=== PATIENT | female | born 1995 | race Two or more races ===

== ENCOUNTER 2017-08-02 22:28 | Emergency (ER) | payer SELFPAY ==
[2017-08-02 22:57] VITALS: BP 125/83
== END 2017-08-03 01:03 | disposition left against medical advice (07) ==
LOC: ER 22:28
DX: Z53.21 Procedure and treatment not carried out due to patient leaving prior to being seen by health care provider (principal)

== ENCOUNTER 2018-06-19 12:07 | Outpatient (CLI) | payer MEDICAID ==
[2018-06-19 12:56] LABS: APPEARANCE,URINE CLEAR; BILIRUBIN,URINE NEGATIVE (NEGATIVE); COLOR,URINE YELLOW; GLUCOSE, URINE NEGATIVE (NEGATIVE); KETONES,URINE NEGATIVE (NEGATIVE); LEUKOCYTE ESTERASE,URINE SMALL (NEGATIVE); NITRITE,URINE NEGATIVE (NEGATIVE); PROTEIN,URINE 30 mg/dL (NEGATIVE); URINE SPECIFIC GRAVITY 1.009; UROBILINOGEN,URINE NEGATIVE mg/dL (<2.0)
[2018-06-19 13:30] LABS: URINE AMPHETAMINES SCREEN NEGATIVE; URINE BARBITURATES SCREEN NEGATIVE; URINE BENZODIAZEPINES SCREEN NEGATIVE; URINE MARIJUANA (THC) SCREEN NEGATIVE; URINE METHADONE SCREEN NEGATIVE; URINE PHENCYCLIDINE SCREEN NEGATIVE
--- NOTE | 2018-06-19 13:51 | Non Stress Test Report ---
Non Stress Test Datetime Report Generated by CPN: 06/19/2018 13:51 DEMOGRAPHIC EGA NST: 37.2 INDICATION Indication for Study: Ordered by Provider MONITORING Monitor Explained: Monitor Explained; Test Explained; Patient Verbalized Understanding Time on Monitor: 06/19/2018 12:30 Time off Monitor: 06/19/2018 13:15 NST Duration: 45 NST INTERVENTIONS NST Interventions: PO Hydration Physician Notified NST: K Sapp CNM BABY A: [id number] Movement : Present Contraction Frequency : irregular FHR Baseline : 130 Accelerations : 15X15 Decelerations : None Variability : Moderate 6-25bpm NST Review: Meets Criteria for Reactive NST NST Review and Verified By : Antwon Tavarez RN NST Results: Reactive NST REPORT Report Trigger: Send Report
[2018-06-19 14:03] LABS: URINE COCAINE SCREEN NEGATIVE
[2018-06-19 14:26] LABS: UR PRO/CREAT RATIO RESULT 0.5 mg/mg (0.0-0.2); URINE CREATININE 80.2 mg/dL (16-327); URINE PROTEIN 38.2 mg/dL (<12)
== END 2018-06-19 13:30 | disposition home or self-care (01) ==
LOC: LC 12:07
PROVIDERS: ATTEND Obstetrics & Gynecology
PROC: 4A1HXCZ Monitoring of Products of Conception, Cardiac Rate, External Approach (ICD-10-PCS; principal; 2018-06-19)
DX: O47.1 False labor at or after 37 completed weeks of gestation (principal); Z3A.37 37 weeks gestation of pregnancy
CPT/HCPCS: 59025; 80307; 81005; 82570; 84156

== ENCOUNTER 2018-06-23 03:20 | Inpatient (IN) | payer MEDICAID ==
[2018-06-23] MEDS ORDERED: RINGERS SOLUTION,LACTATED 1,000 ML IV PRN ×2 (03:27→07:22)
[2018-06-23] MEDS ORDERED: OXYTOCIN/NORMAL SALINE 20 UNIT/1,000 ML RTUINJ ONE (03:31)
[2018-06-23] MEDS ORDERED: MISOPROSTOL 0.2 MG TABLET ONE (03:31)
[2018-06-23] MEDS ORDERED: LIDOCAINE 1% INJ-PF (10 MG/ML) 30 ML SDV ONE (03:31)
[2018-06-23 03:51] LABS: ABSOLUTE BASOPHILS # (AUTO) 0.1 10^3/uL (0.0-0.2); ABSOLUTE EOSINOPHILS # (AUTO) 0.2 10^3/uL (0.0-0.6); ABSOLUTE LYMPHOCYTES (AUTO) 3.5 10^3/uL (0.5-4.7); ABSOLUTE MONOCYTES (AUTO) 0.7 10^3/uL (0.1-1.4); ABSOLUTE NEUT (AUTO) 9.1 10^3/uL (1.7-8.2); BASOPHILS % (AUTO) 0.7 % (0-2); EOSINOPHILS % (AUTO) 1.8 % (0-6); HEMATOCRIT 35.7 % (36.0-47.0); HEMOGLOBIN 12.1 g/dL (12.0-15.5); LYMPHOCYTES % (AUTO) 25.5 % (13-45); MEAN CORPUSCULAR HEMOGLOBIN 27.6 pg (27.0-33.4); MEAN CORPUSCULAR HGB CONC 33.8 g/dL (32.0-36.0); MEAN CORPUSCULAR VOLUME 82 fl (80-97); MONOCYTES % (AUTO) 5.1 % (3-13); PLATELET COUNT 370 10^3/uL (150-450); RED BLOOD COUNT 4.36 10^6/uL (3.72-5.28); RED CELL DISTRIBUTION WIDTH 14.7 % (11.5-14.0); SEGMENTED NEUTROPHILS % (AUTO) 66.9 % (42-78); TOTAL CELLS COUNTED % (AUTO) 100 %; WHITE BLOOD COUNT 13.7 10^3/uL (4.0-10.5)
[2018-06-23 03:59] LABS: APPEARANCE,URINE CLOUDY; BILIRUBIN,URINE NEGATIVE (NEGATIVE); COLOR,URINE YELLOW; GLUCOSE, URINE NEGATIVE (NEGATIVE); KETONES,URINE NEGATIVE (NEGATIVE); LEUKOCYTE ESTERASE,URINE NEGATIVE (NEGATIVE); NITRITE,URINE NEGATIVE (NEGATIVE); PROTEIN,URINE 30 mg/dL (NEGATIVE); URINE SPECIFIC GRAVITY 1.009; UROBILINOGEN,URINE NEGATIVE mg/dL (<2.0)
--- NOTE | 2018-06-23 04:13 | Admission Physical ---
Datetime Report Generated by CPN: 06/23/2018 04:12 CURRENT ADMISSION Chief Complaint: Uterine Contractions; Suspected Ruptured Membranes Indication for Induction: Not Applicable Admit Impression : Term, Intrauterine ; Ruptured Membranes Admit Plan: Admit to Unit; Initiate Labor Protocol ALLERGIES Medication Allergies: No Medication Allergies: No Known Allergies (06/23/2018) Latex: No Latex Allergies Food Allergies: n/a Environmental Allergies: n/a OBSTETRICAL HISTORY EDC: 07/08/2018 00:00 : 2 Para: 1 Term: 1 : 0 SAB: 0 IAB: 0 Ectopic: 0 Livin Cesareans: 0 VBACs: 0 Multiple Births: 0 Gestational Diabetes: No Rh Sensitization: No Incompetent Cervix: No SARAN: No Infertility: No ART Treatment: No Uterine Anomaly: No IUGR: No Hx Previous C/S: No Macrosomia: No Hx Loss/Stillborn: No PIH: No Hx : No Placenta Previa/Abruption: No Depression/PP Depression: No PTL/PROM: No Post Hemorrhage: No Current Procedures: Ultrasound Obstetrical History Comments: G1- G2- current SEE RECORDS Alcohol: No Marijuana : No Cocaine: No Other Illicit Drugs: No Cigarettes: Never Smoker. [id number] MEDICAL HISTORY Diabetes: No Blood Transfusion: No Pulmonary Disease (Asthma, TB): No Breast Disease: No Hypertension: No Et[employer] W[employer] Surgery: No Heart Disease: No Hosp/Surgery: Yes Autoimmune Disorder: No Anesthetic Complications: No Kidney Disease: No Abnormal Pap Smear: No Neuro/Epilepsy: No Psychiatric Disorders: No Other Medical Diseases: No Hepatitis/Liver Disease: No Significant Family History: Yes Varicosities/Phlebitis: No Trauma/Violence : No Thyroid Dysfunction: No Medical History Comments: childbirth INFECTIOUS HISTORY Gonorrhea: No Genital Herpes: No Chlamydia: No Tuberculosis: No Syphilis: No Hepatitis: No HIV/AIDS Exposure: No Rash or Viral Illness: No HPV: No PHYSICAL EXAM General: Normal HEENT: Normal Neurologic: Normal Thyroid: Normal Heart: Normal Lungs: Normal Breast: Deferred Back: Normal Abdomen: Normal Genitourinary Exam: Normal Extremities: Normal DTRs: Normal Pelvic Type: Adequate Vital Signs: Reviewed VAGINAL EXAM Dilatation: 5 Effacement: 50 Station: -2 MEMBRANES Pooling: Positive Membranes: Ruptured FETUS A EGA: 37.6 Monitoring: External US FHR- Baseline: 120 Variability: Moderate 6-25bpm Accelerations: 15X15 Decelerations: None FHR Category: Category I Admit Comment: Admit for delivery PLANS FOR LABOR AND DELIVERY Labor and Delivery: Plan Pain Management: Natural; Medications; Epidural Feeding Preference: Breast Benefit of Breast Feed Discussed: Yes Circumcision: Yes INFORMED CONSENT Signature: with User ID: [email or web address]
[2018-06-23 04:20] LABS: URINE AMPHETAMINES SCREEN NEGATIVE; URINE BARBITURATES SCREEN NEGATIVE; URINE BENZODIAZEPINES SCREEN NEGATIVE; URINE COCAINE SCREEN NEGATIVE; URINE MARIJUANA (THC) SCREEN NEGATIVE; URINE METHADONE SCREEN NEGATIVE; URINE PHENCYCLIDINE SCREEN NEGATIVE
[2018-06-23] MEDS ORDERED: PHENYLEPHRINE HCL INJ/PF 10 MG/1 ML SDV ONE (04:51)
[2018-06-23] MEDS ORDERED: FENTANYL CITRATE INJ/PF 100 MCG/2 ML AMPUL ONE (04:51)
[2018-06-23] MEDS ORDERED: FENTANYL/BUPIVACAINE/NS/PF 300 MCG/150 ML RTUINJ EPI ONE (04:52)
[2018-06-23] MEDS ORDERED: EPHEDRINE SULFATE INJ 50 MG/1 ML AMPULE ONE (04:52)
[2018-06-23] MEDS ORDERED: LIDOCAINE 2%/EPINEPHRINE INJ 20 ML VIAL ONE (04:52)
[2018-06-23] MEDS ORDERED: BUPIVACAINE HCL 0.25 % INJ/PF (2.5 MG/1 ML) 30 ML VIAL ONE (04:52)
[2018-06-23] MEDS ORDERED: LIDOCAINE 1.5%/EPINEPHRINE INJ 5 ML AMP ONE (04:53)
[2018-06-23] MEDS ORDERED: ACETAMINOPHEN 325 MG TABLET PO PRN (07:22)
[2018-06-23] MEDS ORDERED: ACETAMINOPHEN 1,000 MG/100 ML RTUPB IV PRN (07:22)
[2018-06-23] MEDS ORDERED: MEASLES,MUMPS&RUBELLA VACC/PF 0.5 ML VIAL SUBCUT PRN ×2 (07:22→08:48)
[2018-06-23] MEDS ORDERED: HYDROMORPHONE HCL INJ/PF 2 MG/ML AMPULE IV PRN (07:22)
[2018-06-23] MEDS ORDERED: DIPH/PERTUSS(ACELL)/TETANUS VAC/PF 0.5 ML SYR (>=10YO) IM PRN ×2 (07:22→08:48)
[2018-06-23] MEDS ORDERED: SIMETHICONE 80 MG TAB.CHEW PO PRN (07:22)
[2018-06-23] MEDS ORDERED: PROMETHAZINE HCL INJ 25 MG/1 ML VIAL IV PRN (07:22)
[2018-06-23] MEDS ORDERED: OXYTOCIN/NORMAL SALINE 20 UNIT/1,000 ML RTUINJ IV PRN ×2 (07:22→08:48)
[2018-06-23] MEDS ORDERED: OXYCODONE-ACETAMINOPHEN 5-325 MG TABLET PO PRN ×2 (07:22)
[2018-06-23] MEDS ORDERED: BENZOCAINE/MENTHOL AEROSOL SPRAY 56 ML TOP PRN (08:48)
[2018-06-23] MEDS ORDERED: DIBUCAINE 1% OINTMENT 56 GM TP PRN (08:48)
[2018-06-23] MEDS ORDERED: ACETAMINOPHEN WITH CODEINE #3 TABLET PO PRN ×2 (08:48)
[2018-06-23] MEDS ORDERED: ZOLPIDEM TARTRATE 5 MG TABLET PO PRN (08:48)
--- NOTE | 2018-06-23 09:59 | Delivery Summary ---
Del Sum A-C Datetime Report Generated by CPN: 06/23/2018 09:59 DELIVERY PERSONNEL DELIVERY PERSONNEL: [id number] Delivery Doctor:: Christine Pacheco MD Labor and Delivery Nurse:: Jami Hawley RNladies attendant Nurse:: Shweta Wyatt RN Varnishing Unit Operator:: Tianna Jaramillo RN Rn Security/PAINTER MAINTENANCE: Estela Quintanilla CNA II MATERNAL INFORMATION Delivery Anesthesia: Epidural Medications After Delivery: Pitocin Drip 20 Units/1000ml NSS Estimated Blood Loss (ml): 250 Maternal Complications: None LABOR SUMMARY EDC: 07/08/2018 00:00 No. Babies in Womb: 1 Attempted: No Labor Anesthesia: Epidural LABOR INFORMATION Reason for Induction: Not Applicable Onset of Labor: 06/23/2018 03:00 Complete Dilatation: 06/23/2018 07:01 Oxytocin: N/A Group B Beta Strep: negative Antibiotics # of Doses: 0 Steroids Given: None Reason Steroids Not Administered: Not Applicable MEMBRANES Membranes Rupture Method: Spontaneous Rupture of Membranes: 06/23/2018 03:00 Length of Rupture (hr): 4.17 Amniotic Fluid Color: Clear Amniotic Fluid Amount: Moderate Amniotic Fluid Odor: Normal STAGES OF LABOR Stage 1 hr: 4 Stage 1 min: 1 Stage 2 hr: 0 Stage 2 min: 9 Stage 3 hr: 0 Stage 3 min: 4 Total Time in Labor hr: 4 Total Time in Labor min: 14 VAGINAL DELIVERY Episiotomy: None Laceration #1: None Laceration Extension #1: N/A Laceration #2: None Laceration Extension #2: N/A Laceration #3: None Laceration Extension #3: N/A Laceration Repair: Not Applicable Sponge Count Correct: N/A Sharps Count Correct: N/A CSECTION DELIVERY Primary Indication: N/A Secondary Indication: N/A CSection Incidence: N/A Labor: N/A Elective: N/A CSection Incision: N/A BABY A INFORMATION Delivery Date/Time: 06/23/2018 07:10 Method of Delivery: Vaginal Born in Route : No : N/A Forceps: N/A Vacuum Extraction: N/A Shoulder Dystocia : No PRESENTATION/POSITION BABY A Presentation: Cephalic Cephalic Presentation: Vertex Vertex Position: Right Occipital Anterior Breech Presentation: N/A PLACENTA INFORMATION BABY A Placenta Delivery Time : 06/23/2018 07:14 Placenta Method of Delivery: Spontaneous Placenta Status: Delivered SCORES BABY A Heart Rate 1 min: >100 bpm Resp Effort 1 min: Good Cry Reflex Irritability 1 min: Cough or Sneeze or Pulls Away Muscle Tone 1 min: Active Motion Color 1 min: Blue/Pale Resuscitation Effort 1 min: Tactile Stimulation SCORE 1 MIN: 8 Heart Rate 5 min: >100 bpm Resp Effort 5 min: Good Cry Reflex Irritability 5 min: Cough or Sneeze or Pulls Away Muscle Tone 5 min: Active Motion Color 5 min: Body [place], Extremities Blue Resuscitation Effort 5 min: Tactile Stimulation SCORE 5 MIN: 9 INFORMATION BABY A Gestational Age at Delivery: 37.6 Gestational Status: Early Term- 37- 38.6 Weeks Infant Outcome : Liveborn Condition : Stable Infant Sex: Male IDENTIFICATION BABY A Verification Date/Time: 06/23/2018 07:30 ID Band Number: [id number] Mother's Name Verified: Yes Infant RN Verifying : Arie Jaramillo RN Ashley Barton RN WEIGHT/LENGTH BABY A Birthweight (gm): 3159 Infant Weight (lb): 6 Infant Weight (oz): 15 Length (in): 19.00 Length (cm): 48.26 CORD INFORMATION BABY A No. Cord Vessels: 3 Nuchal Cord : Around Neck x1, Loose Cord Blood Taken: Yes-For Eval (Mom's Blood Type - or O+) Suction: Mouth ASSESSMENT BABY A Infant Complications: None Physical Findings at Delivery: Within Normal Limits Infant Respirations: Appears Normal Skin to Skin: Yes Skin to Skin Time (min): 60 Linux System Admin/ALS Called : No Infant Care By: Arie Jaramillo RN Transferred To: Remains with Mother BABY B INFORMATION : N/A SIGNATURES Signature: with User ID: [email or web address]
--- NOTE | 2018-06-23 09:59 | Warning Signs in Babies ---
VOD Warning Signs Datetime Report Generated by [facility]: 06/23/2018 09:59 VOD#608 -Warning Signs in Babies: Viewed with Parent(s)/Family (06/19/2018 12:13:Tianna Jaramillo RN)
[2018-06-23] MEDS ORDERED: PRENATAL VITAMIN W DHA CAPSULE PO SCH (10:00)
[2018-06-23] MEDS ORDERED: DOCUSATE SODIUM 100 MG CAPSULE PO SCH (10:00)
[2018-06-23] MEDS ORDERED: PRENATAL VITAMIN W DHA CAPSULE PO ONE (10:02)
[2018-06-23] MEDS ORDERED: SENNOSIDES/DOCUSATE 8.6-50 MG 1 EACH TABLET ONE (10:03)
[2018-06-23] MEDS ORDERED: FERROUS SULFATE 325 MG TABLET PO ONE (10:03)
[2018-06-23] MEDS ORDERED: DOCUSATE SODIUM 100 MG CAPSULE ONE (10:03)
[2018-06-23] MEDS: SENNOSIDES/DOCUSATE 8.6-50 MG 1 EACH TABLET PO SCH (10:04)
[2018-06-23] MEDS: PRENATAL VITAMIN W DHA CAPSULE PO SCH (10:04)
[2018-06-23] MEDS: DOCUSATE SODIUM 100 MG CAPSULE PO SCH ×2 (10:05→17:21)
[2018-06-23] MEDS: FERROUS SULFATE 325 MG TABLET PO SCH ×2 (10:05→17:21)
[2018-06-23] MEDS ORDERED: IBUPROFEN 800 MG TABLET PO SCH (12:00)
[2018-06-23] MEDS: IBUPROFEN 800 MG TABLET PO SCH ×2 (13:41→21:29)
[2018-06-23] MEDS ORDERED: KETOROLAC TROMETHAMINE INJ/PF 30 MG/1 ML SDV IV SCH (14:00)
[2018-06-24] MEDS: IBUPROFEN 800 MG TABLET PO SCH ×3 (05:05→18:01)
[2018-06-24 08:21] LABS: HEMATOCRIT 35.7 % (36.0-47.0); MEAN CORPUSCULAR HGB CONC 33.5 g/dL (32.0-36.0); MEAN CORPUSCULAR VOLUME 83 fl (80-97); PLATELET COUNT 396 10^3/uL (150-450); RED BLOOD COUNT 4.28 10^6/uL (3.72-5.28)
[2018-06-24] MEDS: SENNOSIDES/DOCUSATE 8.6-50 MG 1 EACH TABLET PO SCH (10:32)
[2018-06-24] MEDS: DOCUSATE SODIUM 100 MG CAPSULE PO SCH ×2 (10:32→17:59)
[2018-06-24] MEDS: PRENATAL VITAMIN W DHA CAPSULE PO SCH (10:33)
[2018-06-24] MEDS: FERROUS SULFATE 325 MG TABLET PO SCH ×2 (10:33→17:59)
--- NOTE | 2018-06-24 11:02 | PDOC PROGRESS REPORT ---
Subjective-OB Progress Note for:: 06/24/18 Subjective: reports bleeding slowing,pain controlled with current meds, denies needs. Physical Exam (OB) Vital Signs: Temp Pulse Resp BP Pulse Ox 98.3 F 77 18 130/86 H 99 06/24/18 08:04 06/24/18 08:04 06/24/18 08:04 06/24/18 08:04 06/24/18 08:04 Intake & Output 06/23/18 06/24/18 06/25/18 06:59 06:59 06:59 Intake Total 2800 Balance 2800 Weight 97.8 kg - Abdomen Description: Soft, Round Hernia Present: No Fundal Description: Firm, Midline Fundal Height: u/u - u/2 - Abdominal Distension: No distension Tenderness: Nontender - Extremities Lower extremities: Sil's sign - neg Calf: Normal, Nontender Objective-Diagnostic Laboratory: 06/24/18 07:52 06/24/18 07:52 WBC 15.0 H RBC 4.28 Hgb 12.0 Hct 35.7 L MCV 83 MCH 28.0 MCHC 33.5 RDW 15.0 H Plt Count 396 Assessment and Plan(PN) - Assessment and Plan (1) Normal vaginal delivery Is this a current diagnosis for this admission?: Yes - Time Spent with Patient Time with patient: Less than 15 minutes Medications reviewed and adjusted accordingly: Yes - Disposition Anticipated Discharge: Home Within: within 24 hours
[2018-06-25] MEDS: IBUPROFEN 800 MG TABLET PO SCH ×2 (05:09→05:10)
[2018-06-25 09:02] VITALS: BP 120/71
[2018-06-25] MEDS: SENNOSIDES/DOCUSATE 8.6-50 MG 1 EACH TABLET PO SCH (09:15)
[2018-06-25] MEDS: DOCUSATE SODIUM 100 MG CAPSULE PO SCH (09:15)
[2018-06-25] MEDS: FERROUS SULFATE 325 MG TABLET PO SCH (09:15)
[2018-06-25] MEDS: PRENATAL VITAMIN W DHA CAPSULE PO SCH (09:15)
--- NOTE | 2018-06-25 09:44 | PDOC DISCHARGE SUMMARY ---
Final Diagnosis Discharge Date: 06/25/18 - PP Day #2, bottle feeding, baby being transferred to [place] for continued care. O+. - Final Diagnosis (1) Normal course Is this a current diagnosis for this admission?: Yes (2) Normal vaginal delivery Is this a current diagnosis for this admission?: Yes Discharge Data - Discharge Medication Prescriptions: Ibuprofen [Motrin 800 mg Tablet] 800 mg PO Q8 #60 tablet Home Medications: Vit No.130/Iron/Folic [ Tablet] 1 each PO DAILY 06/19/18 Ibuprofen [Motrin 800 mg Tablet] 800 mg PO Q8 #60 tablet 06/25/18 Reason(s) for Admission: Onset of Labor Procedures: Ultrasound Intrapartum Procedure(s): Spontaneous Vaginal Delivery - Diagnosis Test Laboratory: Temp Pulse Resp BP Pulse Ox 98.0 F 71 18 120/71 99 06/25/18 08:18 06/25/18 08:18 06/25/18 08:18 06/25/18 08:18 06/25/18 08:18 06/23/18 06/23/18 06/24/18 03:24 03:38 07:52 RBC 4.36 4.28 Hgb 12.1 12.0 Hct 35.7 L 35.7 L Urine Opiates Screen NEGATIVE - Discharge information/Instructions Discharge Activity: Activity As Tolerated, No Lifting Over 10 Pounds, Pelvic Rest Discharge Diet: As Tolerated, Regular Disposition: HOME, SELF-CARE Follow up with: [facility] in: 4, Weeks
== END 2018-06-25 10:02 | disposition home or self-care (01) | DRG 807 ==
LOC: LC 03:20 → LR 03:30 → 2S 10:50
PROVIDERS: ADMIT Obstetrics & Gynecology; ATTEND Obstetrics & Gynecology
PROC: 10E0XZZ Delivery of Products of Conception, External Approach (ICD-10-PCS; principal; 2018-06-23)
PROC: 4A1HXCZ Monitoring of Products of Conception, Cardiac Rate, External Approach (ICD-10-PCS; 2018-06-23)
DX: O69.81X0 Labor and delivery complicated by cord around neck, without compression, not applicable or unspecified (principal); Z37.0 Single live birth; Z3A.37 37 weeks gestation of pregnancy
CPT/HCPCS: 36415; 80307; 81005; 85025; 85027; 86592; 86850; 86900; 86901; 94760; J2370; J2590; J3010; J3490

== ENCOUNTER 2019-06-09 20:59 | Emergency (ER) | payer SELFPAY ==
--- NOTE | 2019-06-09 21:46 | ER Document Report ---
ED Medical Screen (RME) - General Chief Complaint: Pelvic Pain Stated Complaint: VAGINAL BLEEDING Time Seen by Provider: 06/09/19 21:41 Mode of Arrival: Ambulatory Information source: Patient Notes: 23-year-old female presents emergency department with complaints of heavy vaginal bleeding alternating with light bleeding for the past 2 months. She also reports of abdominal pain. Reports yellow diarrhea for the past 5 days. Patient also complains of palpitations feel like something is in her throat. Denies fever and vomiting. Patient speaking in a clear voice. Respiratory rate even unlabored. Reports family history with thyroid issues. I have greeted and performed a rapid initial assessment of this patient. A comprehensive ED assessment and evaluation of the patient, analysis of test results and completion of the medical decision making process will be conducted by additional ED providers. TRAVEL OUTSIDE OF THE [place] IN LAST 30 DAYS: No - Related Data Allergies/Adverse Reactions: No Known Allergies Allergy (Verified 06/23/18 03:49) Past Medical History Psychiatric Medical History: Reports: Hx Depression - SEEN BY [facility] TWICE AFTER SELF-INFLICTED INJURY 2 YRS AGO. - Immunizations Immunizations up to date: Yes Physical Exam - Vital signs Vitals: Temp Pulse Resp BP Pulse Ox 98.5 F 98 16 133/89 H 100 06/09/19 21:13 06/09/19 21:13 06/09/19 21:13 06/09/19 21:13 06/09/19 21:13 Course - Vital Signs Vital signs: Temp Pulse Resp BP Pulse Ox 98.5 F 98 16 133/89 H 100 06/09/19 21:13 06/09/19 21:13 06/09/19 21:13 06/09/19 21:13 06/09/19 21:13
[2019-06-09 22:19] LABS: ABSOLUTE BASOPHILS # (AUTO) 0.1 10^3/uL (0.0-0.2); ABSOLUTE EOSINOPHILS # (AUTO) 0.2 10^3/uL (0.0-0.6); ABSOLUTE LYMPHOCYTES (AUTO) 2.7 10^3/uL (0.5-4.7); ABSOLUTE MONOCYTES (AUTO) 0.8 10^3/uL (0.1-1.4); ABSOLUTE NEUT (AUTO) 7.1 10^3/uL (1.7-8.2); BASOPHILS % (AUTO) 0.6 % (0-2); EOSINOPHILS % (AUTO) 1.7 % (0-6); HEMATOCRIT 41.4 % (36.0-47.0); HEMOGLOBIN 13.8 g/dL (12.0-15.5); LYMPHOCYTES % (AUTO) 24.8 % (13-45); MEAN CORPUSCULAR HEMOGLOBIN 28.9 pg (27.0-33.4); MEAN CORPUSCULAR HGB CONC 33.3 g/dL (32.0-36.0); MEAN CORPUSCULAR VOLUME 87 fl (80-97); MONOCYTES % (AUTO) 7.7 % (3-13); PLATELET COUNT 361 10^3/uL (150-450); RED BLOOD COUNT 4.76 10^6/uL (3.72-5.28); RED CELL DISTRIBUTION WIDTH 14.6 % (11.5-14.0); SEGMENTED NEUTROPHILS % (AUTO) 65.2 % (42-78); TOTAL CELLS COUNTED % (AUTO) 100 %; WHITE BLOOD COUNT 10.9 10^3/uL (4.0-10.5)
[2019-06-09 22:27] LABS: APPEARANCE,URINE SLIGHTLY-CLOUDY; BILIRUBIN,URINE NEGATIVE (NEGATIVE); COLOR,URINE YELLOW; GLUCOSE, URINE NEGATIVE (NEGATIVE); KETONES,URINE NEGATIVE (NEGATIVE); PROTEIN,URINE 30 mg/dL (NEGATIVE); URINE SPECIFIC GRAVITY 1.029; UROBILINOGEN,URINE NEGATIVE mg/dL (<2.0)
[2019-06-09 22:37] LABS: ALBUMIN 4.9 g/dL (3.5-5.0); ALKALINE PHOSPHATASE 69 U/L (38-126); ANION GAP 12 (5-19); ASPARTATE AMINO TRANSFERASE 65 U/L (14-36); BILIRUBIN,DIRECT 0.3 mg/dL (0.0-0.4); BILIRUBIN,TOTAL 0.5 mg/dL (0.2-1.3); BLOOD UREA NITROGEN 15 mg/dL (7-20); CALCIUM 9.7 mg/dL (8.4-10.2); CARBON DIOXIDE 26 mmol/L (22-30); CHLORIDE 103 mmol/L (98-107); GLUCOSE 91 mg/dL (75-110); POTASSIUM 4.1 mmol/L (3.6-5.0); TOTAL PROTEIN 8.4 g/dL (6.3-8.2)
[2019-06-10] MEDS ORDERED: LIDOCAINE 2% VISCOUS SOLN 15 ML UDCUP PO ONE (00:01)
[2019-06-10] MEDS ORDERED: MAG HYDROX/AL HYDROX/SIMETH SUSP 30 ML UDCUP PO ONE (00:01)
--- NOTE | 2019-06-10 00:09 | ER Document Report ---
ED General - General Chief Complaint: Pelvic Pain Stated Complaint: VAGINAL BLEEDING Time Seen by Provider: 06/09/19 21:41 Primary Care Provider: [facility] [Provider Group] - Follow up as needed RIYA PORRAS MD [ACTIVE STAFF] - Follow up as needed JERSON [facility] MD [ACTIVE STAFF] - Follow up as needed JOYA MORENO MD [ACTIVE STAFF] - Follow up as needed Mode of Arrival: Ambulatory TRAVEL OUTSIDE OF THE [place] IN LAST 30 DAYS: No - HPI Notes: Patient is a 23-year-old female with no significant past medical history who presents for a couple concerns today. Patient states that she has been having some epigastric and right upper quadrant pain over the past couple days with nausea associated. Patient states that she is also had some diarrhea for the past 5 days. She is otherwise urinating normally. Patient states that she has been having vaginal bleeding that varies from spotting to heavy bleeding intermittently over the past couple months. She is also been having some intermittent palpitations over the past 5 months give or take and she does have an appointment scheduled with Dr. Ayoub for further evaluation. She is able to eat and drink, does have decreased p.o. intake. No surgical history to her abdomen. Denies any headache, fever, neck pain, URI, sore throat, chest pain, syncope, cough, shortness of breath, wheeze, dyspnea, urinary retention, dysuria, hematuria, back pain, loss of control of bowel or bladder, numbness/tingling, saddle anesthesia, muscle paralysis/weakness, or rash. - Related Data Allergies/Adverse Reactions: No Known Allergies Allergy (Verified 06/23/18 03:49) Past Medical History - General Information source: Patient - Social History Smoking Status: Never Smoker Family History: None Patient has suicidal ideation: No Patient has homicidal ideation: No Psychiatric Medical History: Reports: Hx Depression - SEEN BY [facility] TWICE AFTER SELF-INFLICTED INJURY 2 YRS AGO. - Immunizations Immunizations up to date: Yes Review of Systems - Review of Systems -: Yes All other systems reviewed and negative Physical Exam - Vital signs Vitals: Temp Pulse Resp BP Pulse Ox 98.5 F 98 16 133/89 H 100 06/09/19 21:13 06/09/19 21:13 06/09/19 21:13 06/09/19 21:13 06/09/19 21:13 - Notes Notes: PHYSICAL EXAMINATION: GENERAL: Well-appearing, well-nourished and in no acute distress. HEAD: Atraumatic, normocephalic. EYES: Pupils equal round and reactive to light, extraocular movements intact, sclera anicteric, conjunctiva are normal. ENT: Nares patent and without discharge. oropharynx clear without exudates. No tonsilar hypertrophy or erythema. Moist mucous membranes. NECK: Normal range of motion, supple without lymphadenopathy LUNGS: Breath sounds clear to auscultation bilaterally and equal. No wheezes rales or rhonchi. HEART: Regular rate and rhythm without murmurs, rubs, gallops. ABDOMEN: Soft, nondistended abdomen. No guarding, no rebound. Normal bowel sounds present. No CVA tenderness bilaterally. + mild epigastric/RUQ tenderness. No lower tenderness appreciated. Musculoskeletal: FROM to passive/active. Strength 5+/5. Sil neg. No asymmetry to LE's. Extremities: No cyanosis, clubbing, or edema b/l. Peripheral pulses 2+. Capillary refill less than 3 seconds. NEUROLOGICAL: Normal speech, normal gait. PSYCH: Normal mood, normal affect. SKIN: Warm, Dry, normal turgor, no rashes or lesions noted. Course - Re-evaluation Re-evalutation: 06/10/19 01:31 Last week patient is an afebrile, well-hydrated, 23-year-old female who presents with suspected gastroenteritis, dysmenorrhea, and palpitations. Vitals are acceptable without significant tachycardia, tachypnea, hypoxia. PE is otherwise unremarkable. Labs unremarkable as well as imaging. Patient is nontoxic- appearing and is tolerating p.o. without difficulty. Patient is otherwise [place] and PERC negative. GI cocktail did improve her epigastric symptoms. Low suspicion/risk for PE, ACS, pneumothorax, pericarditis, dissection, acute appendicitis, bowel obstruction, acute cholecystitis, acute cholangitis, perforated diverticulitis, incarcerated hernia, pancreatitis, perforated ulcer, peritonitis, sepsis, pelvic inflammatory disease, ectopic , tubo- ovarian abscess, ovarian torsion, or other systemic emergent condition at this t lori. Patient is aware that her condition can change from initial presentation and she needs to monitor symptoms closely and seek medical attention if any acute changes. Conservative measures otherwise for symptoms. Keep scheduled appointment with [employer]GER [employer] and cardiology. Recheck with your PCM in 2-3 days. Consider consult with a account technician. Return to the ED with any worsening/concerning symptoms otherwise as reviewed in discharge. Patient is in agreement. - Vital Signs Vital signs: Temp Pulse Resp BP Pulse Ox 98.5 F 98 16 133/89 H 100 06/09/19 21:13 06/09/19 21:13 06/09/19 21:13 06/09/19 21:13 06/09/19 21:13 - Laboratory Result Diagrams: 06/09/19 22:03 06/09/19 22:03 Laboratory results interpreted by me: 06/09/19 06/09/19 06/09/19 22:03 22:03 22:03 WBC 10.9 H RDW 14.6 H AST 65 H ALT 152 H Total Protein 8.4 H Urine Protein 30 H Urine Blood LARGE H Leukocyte Esterase Rfl TRACE H Discharge - Discharge Clinical Impression: Gastroenteritis, Dysmenorrhea, Palpitations Condition: Stable Disposition: HOME, SELF-CARE Additional Instructions: Maintain adequate fluid and food intake healthy diet Monitor blood pressure daily and keep a log Monitor symptoms for any acute changes Recheck with your PCM in 3-5 days Consider a follow-up with cardiology/OBGYN/Gastroenterology Return to the ED with any worsening symptoms and/or development of fever, h eadache, chest pain, palpitations, syncope, shortness of breath, trouble breathing, abdominal pain, n/v/d, blood in stool/urine, loss of control of bowel/bladder, urinary retention, muscle weakness/paralysis, numbness/tingling, or other worsening symptoms that are concerning to you. Prescriptions: Omeprazole 20 mg PO DAILY #30 tablet.dr Forms: Elevated Blood Pressure Referrals: JOYA MORENO MD [ACTIVE STAFF] - Follow up as needed RIYA PORRAS MD [ACTIVE STAFF] - Follow up as needed JERSON MC MD [ACTIVE STAFF] - Follow up as needed [facility] [Provider Group] - Follow up as needed
--- NOTE | 2019-06-10 01:09 | RADIOLOGY REPORT (SQ) ---
EXAM DESCRIPTION: Right upper quadrant abdominal ultrasound. CLINICAL HISTORY: 23 years Female; epigastric/RUQ pain TECHNIQUE: Abdominal ultrasound was performed. COMPARISON: None. FINDINGS: Pancreas: A portion of the neck of the pancreas is visualized. The head, body and tail are obscured by overlying bowel gas. Liver: The liver is not well seen. It measures 15.2 cm in length. There appears to be increased echogenicity suggesting fatty infiltration.. Gallbladder: The wall is 1.7 mm. No sonographic Bryan's. No stones. No pericholecystic fluid. Common bile duct: 2.3 mm. Right kidney: Is not well seen. It measures approximately 9.8 x 5.3 x 5.6 cm.. No hydronephrosis. Aorta:Visualized portions are within normal limits. IVC: Visualized portions are within normal limits. IMPRESSION: Limited examination demonstrating fatty infiltration of the liver. No gallstones. No sonographic Bryan's.
[2019-06-10 01:41] VITALS: BP 114/73
--- NOTE | 2019-06-10 11:20 | EKG REPORT ---
SEVERITY:- ABNORMAL ECG - SINUS RHYTHM FIRST DEGREE AV BLOCK : Confirmed by: Soraya Payne MD 10-Jun-2019 11:19:28
== END 2019-06-10 01:50 | disposition home or self-care (01) ==
LOC: ER 20:59
DX: K52.9 Noninfective gastroenteritis and colitis, unspecified (principal); N94.6 Dysmenorrhea, unspecified; R00.2 Palpitations; R10.2 Pelvic and perineal pain; N93.8 Other specified abnormal uterine and vaginal bleeding; R10.13 Epigastric pain; R10.11 Right upper quadrant pain
CPT/HCPCS: 93005; 99284; 36415; 87086; 83690; 84443; 84703; 85025; 87088; 80053; 81001; 87186; 76705; 93010; J3490

== ENCOUNTER 2019-06-13 11:40 | Emergency (ER) | payer SELFPAY ==
[2019-06-13 11:50] VITALS: BP 126/79
--- NOTE | 2019-06-13 11:51 | ER Document Report ---
ED Medical Screen (RME) - General Stated Complaint: URINARY ISSUES Time Seen by Provider: 06/13/19 11:49 Cannot obtain history due to: Other - This is a 23-year-old female presented to the emergency room today with urinary frequency urgency burning bladder pain ongoing for about 3 days she has had a fever generalized weakness since last night. TRAVEL OUTSIDE OF THE [place] IN LAST 30 DAYS: No - Related Data Allergies/Adverse Reactions: No Known Allergies Allergy (Verified 06/13/19 11:48) Past Medical History Psychiatric Medical History: Reports: Hx Depression - SEEN BY [facility] TWICE AFTER SELF-INFLICTED INJURY 2 YRS AGO. - Immunizations Immunizations up to date: Yes Physical Exam - Vital signs Vitals: Temp Pulse Resp BP Pulse Ox 98.1 F 108 H 18 126/79 H 97 06/13/19 11:47 06/13/19 11:47 06/13/19 11:47 06/13/19 11:47 06/13/19 11:47 - Cardiovascular Rhythm: Regular Heart sounds: Normal auscultation Murmur: No Course - Vital Signs Vital signs: Temp Pulse Resp BP Pulse Ox 98.1 F 108 H 18 126/79 H 97 06/13/19 11:47 06/13/19 11:47 06/13/19 11:47 06/13/19 11:47 06/13/19 11:47
[2019-06-13] MEDS ORDERED: PHENAZOPYRIDINE HCL 200 MG TABLET PO ONE (12:05)
[2019-06-13] MEDS ORDERED: CEFTRIAXONE INJ 1000 MG VIAL IM ONE (12:05)
[2019-06-13] MEDS ORDERED: LIDOCAINE 1% INJ-PF (10 MG/ML) 30 ML SDV INJ ONE (12:05)
--- NOTE | 2019-06-13 12:10 | ER Document Report ---
HPI - HPI Time Seen by Provider: 06/13/19 11:49 Pain Level: 4 Notes: Patient is a 23-year-old female who presents complaining of urinary burning, urgency, frequency, voiding small amounts that began a day after I saw her a few days ago. Patient states that she has been able to eat and drink without difficulty otherwise. She is having normal bowel movements. She does continue to have scant vaginal bleeding which she has an appointment scheduled with [facility] in 3 days. Denies drug allergies. She otherwise has not had any significant acute changes since her last visit. Patient was asymptomatic with her urine for any urinary symptoms a few days ago so we sent a culture in lieu of starting antibiotics at that time. The culture did show E. coli. Denies any headache, fever, neck pain, URI, sore throat, chest pain, palpitations, syncope, cough, shortness of breath, wheeze, dyspnea, abdominal pain, nausea/vomiting/diarrhea, hematuria, back pain, or rash. - ROS Systems Reviewed and Negative: Yes All other systems reviewed and negative - REPRODUCTIVE Reproductive: DENIES: : Past Medical History - Social History Smoking Status: Never Smoker Chew tobacco use (# tins/day): No Frequency of alcohol use: None Drug Abuse: None Family History: None Patient has suicidal ideation: No Patient has homicidal ideation: No Psychiatric Medical History: Reports: Hx Depression - SEEN BY [facility] TWICE AFTER SELF-INFLICTED INJURY 2 YRS AGO. - Immunizations Immunizations up to date: Yes Vertical Provider Document - CONSTITUTIONAL Agree With Documented VS: Yes Notes: PHYSICAL EXAMINATION: GENERAL: Well-appearing, well-nourished and in no acute distress. HEAD: Atraumatic, normocephalic. EYES: Pupils equal round and reactive to light, extraocular movements intact, sclera anicteric, conjunctiva are normal. ENT: Nares patent and without discharge. oropharynx clear without exudates. No tonsilar hypertrophy or erythema. Moist mucous membranes. NECK: Normal range of motion, supple without lymphadenopathy LUNGS: Breath sounds clear to auscultation bilaterally and equal. No wheezes rales or rhonchi. HEART: Regular rate and rhythm without murmurs, rubs, gallops. ABDOMEN: Soft, nontender, nondistended abdomen. No guarding, no rebound. Normal bowel sounds present. No CVA tenderness bilaterally. Musculoskeletal: FROM to passive/active. Strength 5+/5. Extremities: No cyanosis, clubbing, or edema b/l. Peripheral pulses 2+. Capillary refill less than 3 seconds. NEUROLOGICAL: Cranial nerves grossly intact. Normal speech, normal gait. Normal sensory, motor exams PSYCH: Normal mood, normal affect. SKIN: Warm, Dry, normal turgor, no rashes or lesions noted. - INFECTION CONTROL TRAVEL OUTSIDE OF THE [place] IN LAST 30 DAYS: No Course - Re-evaluation Re-evalutation: 06/13/19 12:45 Patient is an afebrile, well-hydrated, 23-year-old female who presents to the ED with an acute UTI. Vitals are acceptable without any significant tachycardia, tachypnea, or hypoxia. PE is otherwise unremarkable. Patient's abdomen is soft and nontender. She has no CVA tenderness bilaterally. See urinalysis results, not as convincing for UTI, but previous culture did grow e. coli. Pt had neg 3 days ago here. No other labs or imaging warranted at this time based on H&P. Pt given rocephin IM and will be sent home on keflex. Low suspicion/risk for acute appendicitis, bowel obstruction, acute cholecystitis, acute cholangitis, perforated diverticulitis, incarcerated hernia, pancreatitis, perforated ulcer, peritonitis, sepsis, pelvic inflammatory disease, ectopic , tubo-ovarian abscess, ovarian torsion, or other systemic emergent condition at this time. Patient is aware that her condition can change from initial presentation and she needs to monitor symptoms closely and seek medical attention if any acute changes. I will send her home with a prescription for Keflex. Conservative measures otherwise for symptoms. Recheck with your PCM in 3-5 days. Consider consult with a Urologist. Return to the ED with any worsening/concerning symptoms otherwise as reviewed in discharge. Patient is in agreement. - Vital Signs Vital signs: Temp Pulse Resp BP Pulse Ox 98.1 F 108 H 18 126/79 H 97 06/13/19 11:47 06/13/19 11:47 06/13/19 11:47 06/13/19 11:47 06/13/19 11:47 Discharge - Discharge Clinical Impression: Acute UTI (urinary tract infection) Condition: Stable Disposition: HOME, SELF-CARE Instructions: Cephalexin ([facility]), Urinary Tract Infection ([facility]) Additional Instructions: Push fluids (i.e. water, cranberry juice) Proper hygenic technique Keep the skin clean Tylenol/ibuprofen as needed Take medications as directed F/u with your PCM in 3-5 days for a recheck Consider consult with a Urologist for ongoing/worsening symptoms. Return to the ED with any worsening symptoms and/or development of fever, head ache, chest pain, palpitations, syncope, shortness of breath, trouble breathing, abdominal pain, n/v/d, blood in stool/urine, loss of control of bowel/bladder, urinary retention, or other worsening symptoms that are concerning to you. Prescriptions: Cephalexin Monohydrate [Keflex 500 mg Capsule] 500 mg PO TID #21 capsule Forms: Elevated Blood Pressure Referrals: [facility] [Provider Group] - Follow up as needed
[2019-06-13 12:23] LABS: APPEARANCE,URINE SLIGHTLY-CLOUDY; BILIRUBIN,URINE NEGATIVE (NEGATIVE); COLOR,URINE STRAW; GLUCOSE, URINE NEGATIVE (NEGATIVE); KETONES,URINE NEGATIVE (NEGATIVE); LEUKOCYTE ESTERASE,URINE LARGE (NEGATIVE); NITRITE,URINE NEGATIVE (NEGATIVE); PROTEIN,URINE NEGATIVE (NEGATIVE); UROBILINOGEN,URINE NEGATIVE mg/dL (<2.0)
== END 2019-06-13 13:05 | disposition home or self-care (01) ==
LOC: ER 11:40
DX: N39.0 Urinary tract infection, site not specified (principal); B96.20 Unspecified Escherichia coli [E. coli] as the cause of diseases classified elsewhere; N93.9 Abnormal uterine and vaginal bleeding, unspecified
CPT/HCPCS: 99283; 96372; 87086; 81001; J3490 ×2; J0696

== ENCOUNTER 2019-06-18 18:05 | Emergency (ER) | payer SELFPAY ==
--- NOTE | 2019-06-18 20:00 | RADIOLOGY REPORT (SQ) ---
EXAM DESCRIPTION: CHEST SINGLE VIEW COMPLETED DATE/TIME: 06/18/2019 7:35 pm REASON FOR STUDY: #1 SYNCOPE COMPARISON: None. EXAM PARAMETERS: NUMBER OF VIEWS: One view. TECHNIQUE: Single frontal radiographic view of the chest acquired. RADIATION DOSE: NA LIMITATIONS: None. FINDINGS: LUNGS AND PLEURA: No opacities, masses or pneumothorax. No pleural effusion. MEDIASTINUM AND HILAR STRUCTURES: No masses. Contour normal. HEART AND VASCULAR STRUCTURES: Heart normal in size. Normal vasculature. BONES: No acute findings. HARDWARE: None in the chest. OTHER: No other significant finding. IMPRESSION: NO ACUTE RADIOGRAPHIC FINDING IN THE CHEST. TECHNICAL DOCUMENTATION: JOB ID: [id number] 2010 [employer]- All Rights Reserved Reading location - IP/workstation name: [email or web address]
--- NOTE | 2019-06-18 20:30 | ER Document Report ---
ED General - General Chief Complaint: Cough Stated Complaint: COUGH Time Seen by Provider: 06/18/19 18:15 Mode of Arrival: Ambulatory Information source: Patient Notes: 23-year-old female presented to ED for complaint of new onset cough. She states she had a heaviness in her back and she was worried that she was having some heart problems because her father had some heart problems when he was 27 years old from a breast defect. She states she called her father and he insisted that she come to the emergency room with her cough and mild shortness of breath. She denies any travel or any recent exposure to any coated 19 patient. She also denies any fever upper respiratory symptoms. She does speak in clear sentences walks with a even steady gait respirations regular nonlabored. TRAVEL OUTSIDE OF THE [place] IN LAST 30 DAYS: No - HPI Onset: Other - Couple days Onset/Duration: Intermittent Quality of pain: Achy Severity: Mild Pain Level: 1 Associated symptoms: Nonproductive cough, Other - Back pressure chest pressure Exacerbated by: Denies Relieved by: Denies Similar symptoms previously: Yes Recently seen / treated by doctor: No - Related Data Allergies/Adverse Reactions: No Known Allergies Allergy (Verified 06/13/19 11:48) Past Medical History - General Information source: Patient - Social History Smoking Status: Never Smoker Frequency of alcohol use: None Drug Abuse: None Lives with: Family Family History: None Patient has suicidal ideation: No Patient has homicidal ideation: No - Past Medical History Cardiac Medical History: Reports: None Pulmonary Medical History: Reports: None EENT Medical History: Reports: None Neurological Medical History: Reports: None Endocrine Medical History: Reports: None Renal/ Medical History: Reports: None Malignancy Medical History: Reports: None GI Medical History: Reports: None Musculoskeletal Medical History: Reports None Skin Medical History: Reports None Psychiatric Medical History: Reports: Hx Depression - SEEN BY [facility] TWICE AFTER SELF-INFLICTED INJURY 2 YRS AGO., Other - Behavioral health twice a week with self-inflicted injuries Traumatic Medical History: Reports: None Infectious Medical History: Reports: None Surgical Hx: Negative Past Surgical History: Reports: None - Immunizations Immunizations up to date: Yes Review of Systems - Review of Systems Constitutional: No symptoms reported EENT: No symptoms reported Cardiovascular: No symptoms reported Respiratory: Cough, Other - Pressure to the chest and back Gastrointestinal: No symptoms reported Genitourinary: No symptoms reported Female Genitourinary: No symptoms reported Musculoskeletal: No symptoms reported Skin: No symptoms reported Hematologic/Lymphatic: No symptoms reported Neurological/Psychological: No symptoms reported -: Yes All other systems reviewed and negative Physical Exam - Vital signs Vitals: Temp Pulse Resp BP Pulse Ox 98.0 F 58 L 16 121/76 97 06/18/19 18:31 06/18/19 18:31 06/18/19 18:31 06/18/19 18:31 06/18/19 18:31 Interpretation: Normal - General General appearance: Appears well, Alert - HEENT Head: Normocephalic, Atraumatic Eyes: Normal Pupils: PERRL - Respiratory Respiratory status: No respiratory distress. No: Respiratory distress Chest status: Nontender. No: Tender Breath sounds: Normal. No: Decreased air movement, Nonproductive cough, Productive cough, Rales, Rhonchi, Stridor, Wheezing Chest palpation: Normal - Cardiovascular Rhythm: Regular Heart sounds: Normal auscultation Murmur: No - Abdominal Inspection: Normal Distension: No distension Bowel sounds: Normal Tenderness: Nontender Organomegaly: No organomegaly - Back Back: Normal, Nontender - Extremities General upper extremity: Normal inspection, Nontender, Normal color, Normal ROM, Normal temperature General lower extremity: Normal inspection, Nontender, Normal color, Normal ROM, Normal temperature, Normal weight bearing. No: Sil's sign - Neurological Neuro grossly intact: Yes Cognition: Normal Orientation: AAOx4 [place] Coma Scale Eye Opening: Spontaneous [place] Coma Scale Verbal: Oriented [place] Coma Scale Motor: Obeys Commands [place] Coma Scale Total: 15 Speech: Normal Motor strength normal: LUE, RUE, LLE, RLE Sensory: Normal - Psychological Associated symptoms: Normal affect, Normal mood - Skin Skin Temperature: Warm Skin Moisture: Dry Skin Color: Normal Course - Vital Signs Vital signs: Temp Pulse Resp BP Pulse Ox 98.0 F 58 L 16 121/76 97 06/18/19 18:31 06/18/19 18:31 06/18/19 18:31 06/18/19 18:31 06/18/19 18:31 - Diagnostic Test Radiology reviewed: Image reviewed, Reports reviewed - EKG Interpretation by Me EKG shows normal: Sinus rhythm, [place], Intervals, QRS Complexes, ST-T Waves Rate: Normal Rhythm: NSR Discharge - Discharge Clinical Impression: Cough, Shortness of breath Condition: Stable Disposition: HOME, SELF-CARE Additional Instructions: You were seen today for a heavy feeling in your back when you take a deep breath. You state that your father had similar cardiac problems when he was in his 20s so you will concerned that this was a cardiac problem. His problem was a defect to his heart. We have completed a chest x-ray which is negative and EKG which is normal sinus rhythm. Please follow-up with your primary care doctor if you develop any symptoms again. Please try to follow social distancing advice during this pandemic viral infection. FOLLOW-UP CARE: If you have been referred to a physician for follow-up care, call the physicians office for an appointment as you were instructed or within the next two days. If you experience worsening or a significant change in your symptoms, notify the physician immediately or return to the Emergency Department at any time for re-evaluation. Forms: Return to Work
[2019-06-18 20:50] VITALS: BP 116/66
--- NOTE | 2019-06-19 11:22 | EKG REPORT ---
SEVERITY:- NORMAL ECG - SINUS RHYTHM : Confirmed by: Ousmane Espinoza MD 19-Jun-2019 11:22:30
== END 2019-06-18 20:47 | disposition home or self-care (01) ==
LOC: ER 18:05
DX: R05 Cough (principal); R06.02 Shortness of breath; R07.89 Other chest pain
CPT/HCPCS: 71045; 93005; 93010; 99283